=== PATIENT | female | born 1995 ===

== ENCOUNTER 2019-07-24 19:22 | Outpatient (CLI) | payer OTHER ==
[2019-07-24 20:52] LABS: Basophils % (Auto) 0.2 % (0.0-1.8); Eosinophils # (Auto) 0.1 K/mm3 (0.0-0.4); Eosinophils % (Auto) 1.7 % (0.0-4.3); Hematocrit 34.2 % (30.3-42.9); Hemoglobin 11.9 gm/dl (10.1-14.3); Lymphocytes # (Auto) 0.7 K/mm3 (1.2-5.4); Lymphocytes % (Auto) 14.1 % (13.4-35.0); Mean Corpuscular HGB Conc 35 % (30-34); Mean Corpuscular Volume 93 fl (79-97); Monocytes # (Auto) 0.4 K/mm3 (0.0-0.8); Monocytes % (Auto) 7.7 % (0.0-7.3); Platelet Count 236 K/mm3 (140-440); Red Blood Count 3.69 M/mm3 (3.65-5.03); Red Cell Distribution Width 14.7 % (13.2-15.2)
[2019-07-24 21:07] LABS: Alanine Aminotransferase 26 units/L (7-56); Albumin 3.5 g/dL (3.9-5); BUN/Creatinine Ratio 15; Blood Urea Nitrogen 9 mg/dL (7-17); Calcium 8.9 mg/dL (8.4-10.2); Hemolysis Index 15
[2019-07-24 21:25] LABS: Hepatitis C Virus Antibody Non-Reactive (NonReactive)
[2019-07-24 22:29] LABS: Bacteria,Urine 2+ /HPF (Negative); Bilirubin,Urine NEG (Negative); Blood,Urine LG (Negative); Color,Urine Yellow (Yellow); Mucus,Urine FEW /HPF; Protein,Urine <15 mg/dL mg/dL (Negative); Urobilinogen,Urine < 2.0 mg/dL (<2.0)
[2019-07-24 22:58] VITALS: BP 135/87
--- NOTE | 2019-07-24 23:46 | Ultrasound Report ---
Limited Obstetrical Ultrasound Indication: no care. For weight and position. Contractions Shows a normal-appearing intrauterine with an estimated gestational age of 38 weeks 4 days. I do not see a significant discrepancy between head and body measurements. US dating corresponds edward sonably well with clinical dating. No anomalies are seen are seen in a limited survey. Cardiac activity was noted at 156 bpm. Fetus is in a cephalic position. Placenta is anterior/right lateral and free of the internal cervical os. Es timated weight is 3571 g +/- 529 g. Amniotic fluid volume appears appropriate for age. EMMETT yuki surement is at the upper end of the normal range and 18.1 cm. Cervical length is 4.4 cm. Signer Name: Ludin Vazquez MD Signed: 07/24/2019 11:41 PM Workstation Name: [id number]
== END 2019-07-24 23:10 | disposition home or self-care (01) ==
LOC: TRG 19:22
PROVIDERS: ATTEND Obstetrics & Gynecology
DX: O62.9 Abnormality of forces of labor, unspecified (principal); O48.0 Post-term pregnancy; Z3A.40 40 weeks gestation of pregnancy
CPT/HCPCS: 36415; 59025; 76816; 80053; 81001; 85025; 86592; 86689; 86706; 86762; 86803; 86850; 86900; 86901; 87086

== ENCOUNTER 2019-07-25 03:04 | Inpatient (IN) | payer OTHER ==
[2019-07-25] MEDS ORDERED: BUTORPHANOL 2 MG/1 ML INJ IV ONE (03:40)
[2019-07-25 07:24] LABS: Hematocrit 35.4 % (30.3-42.9); Mean Corpuscular HGB Conc 34 % (30-34); Mean Corpuscular Volume 94 fl (79-97); Platelet Count 226 K/mm3 (140-440); Red Blood Count 3.78 M/mm3 (3.65-5.03); Red Cell Distribution Width 14.5 % (13.2-15.2)
[2019-07-25] MEDS ORDERED: MINERAL OIL 30 ML ORAL LIQD PO PRN (08:00)
[2019-07-25] MEDS ORDERED: OXYTOCIN 20 UNIT/1000ML DRIP 20 UNITS/1,000 ML BAG IV SCH (08:00)
[2019-07-25] MEDS ORDERED: TERBUTALINE 1 MG/1 ML INJ IVP PRN (08:00)
[2019-07-25] MEDS ORDERED: OXYTOCIN DRIP 30 UNITS/500 ML BAG IV SCH (08:00)
[2019-07-25] MEDS ORDERED: TERBUTALINE 1 MG/1 ML INJ SUB-Q PRN (08:00)
[2019-07-25] MEDS ORDERED: AMPICILLIN/NS 2 GM/100 ML 2 GM/100 ML BAG IV ONE (08:00)
[2019-07-25] MEDS ORDERED: ONDANSETRON 4 MG/2 ML INJ IV PRN (08:00)
[2019-07-25] MEDS ORDERED: ePHEDrine SULFATE 50 MG/1 ML INJ IV PRN ×2 (08:00→10:30)
[2019-07-25] MEDS ORDERED: fentaNYL 100 MCG/2 ML INJ IV PRN (08:00)
[2019-07-25] MEDS ORDERED: LIDOCAINE (2%) 20 MG/1 ML VIAL 20 ML MDV INFILTRATI NR (08:00)
[2019-07-25] MEDS ORDERED: NalbUPHINE 10 MG/1 ML INJ IV PRN (08:00)
[2019-07-25] MEDS ORDERED: BUTORPHANOL 2 MG/1 ML INJ IV PRN (08:00)
[2019-07-25] MEDS: LACTATED RINGERS 1,000 ML IV SCH ×3 (08:05→19:54)
[2019-07-25] MEDS ORDERED: NALOXONE 2 MG/2 ML INJ IV PRN (10:30)
--- NOTE | 2019-07-25 10:49 | Anesthesia Consultation ---
Anesthesia Consult and Med Hx Date of service: 07/25/19 - Airway Anesthetic Teeth Evaluation: Good ROM Head & Neck: Adequate Mental/Hyoid Distance: Adequate Mallampati Class: Class II Intubation Access Assessment: Probably Good - Pulmonary Exam CTA: Yes - Cardiac Exam Cardiac Exam: RRR - Pre-Operative Health Status ASA Pre-Surgery Classification: ASA2 Proposed Anesthetic Plan: Epidural - Pulmonary Hx Smoking: No Hx Asthma: No Hx Respiratory Symptoms: No SOB: No COPD: No Home Oxygen Therapy: No Hx Pneumonia: No Hx Sleep Apnea: No - Cardiovascular System Hx Hypertension: No Hx Coronary Artery Disease: No Hx Heart Attack/AMI: No Hx Angina: No Hx Percutaneous Transluminal Coronary Angioplasty (PTCA): No Hx Cardia Arrhythmia: No Hx Pacemaker: No Hx Internal Defibrillator: No Hx Valvular Heart Disease: No Hx Heart Murmur: No Hx Peripheral Vascular Disease: No - Central Nervous System Hx Neuromuscular Disorder: No Hx Seizures: No CVA: No Hx Back Pain: No Hx Psychiatric Problems: No - Gastrointestinal Hx Ulcer: No Hx Gastroesophageal Reflux Disease: No - Endocrine Hx Renal Disease: No Hx End Stage Renal Disease: No Hx Cirrhosis: No Hx Liver Disease: No Hx Insulin Dependent Diabetes: No Hx Non-Insulin Dependent Diabetes: No Hx Thyroid Disease: No Hx Hypothyroidism: No Hx Hyperthyroidism: No - Hematic Hx Anemia: No Hx Sickle Cell Disease: No - Other Systems Hx Alcohol Use: No Hx Substance Use: No Hx Cancer: No Hx Obesity: No
[2019-07-25] MEDS: fentaNYL-BUPIV 2 MCG/ML-0.125% 200 MCG/100 ML BAG EPIDURAL SCH ×2 (11:21→19:55)
--- NOTE | 2019-07-25 11:39 | History and Physical Report ---
History of Present Illness Date of examination: 07/25/19 Date of admission: 07/25/19 03:05 Chief complaint: intense labor pains History of present illness: 24yo Fe , VIOLA 07/19/2019 (US) 40 weeks 6 days, presents in spontaneous labor. Pt reports having no care but having an US at 22 weeks and 35 weeks. She denies any PMH or surgical history. Past History Past Medical History: no pertinent history Past Surgical History: no surgical history MANAGER PERSONAL History: other (Denies any MANAGER PERSONAL history) Family/Genetic History: none Social history: single, lives with family, full code. denies: smoking, alcohol abuse, prescription drug abuse, IV drug use - Obstetrical History Expected Date of Delivery: 07/19/19 Actual Gestation: 40 Week(s) 6 Day(s) : 1 Para: 0 Hx # Term Pregnancies: 0 Number of Pregnancies: 0 Spontaneous Abortions: 0 Induced : 0 Number of Living Children: 0 Medications and Allergies Allergies Allergy/AdvReac Type Severity Reaction Status Date / Time No Known Allergies Allergy Verified 07/25/19 03:43 Active Meds: Active Medications Butorphanol Tartrate (Stadol) 2 mg IV Q2H PRN PRN Reason: Pain , Severe (7-10) Last Admin: 07/25/19 07:58 Dose: 2 mg Documented by: Ephedrine Sulfate (Ephedrine Sulfate) 10 mg IV Q2M PRN PRN Reason: Hypotension Fentanyl (Sublimaze) 100 mcg IV Q2H PRN PRN Reason: Labor Pain Oxytocin/Sodium Chloride (Pitocin/Ns 20 Unit/1000ml Drip) 20 units in 1,000 mls @ 125 mls/hr IV DIRECT MELONY Oxytocin/Sodium Chloride (Pitocin/Ns 30 Unit/500ml) 30 units in 500 mls @ 1 mls/hr IV TITR MELONY; Protocol Oxytocin/Sodium Chloride (Pitocin/Ns 30 Unit/500ml) 30 units in 500 mls @ 2 mls/hr IV TITR MELONY; Protocol Lactated Ringer's (Lactated Ringers) 1,000 mls @ 125 mls/hr IV DIRECT MELONY Last Admin: 07/25/19 11:04 Dose: 125 mls/hr Documented by: Ampicillin Sodium (Ampicillin/Ns 1 Gm/50 Ml) 1 gm in 50 mls @ 100 mls/hr IV Q4H MELONY; Protocol Fentanyl/Bupivacaine/Sodium Chlor (Fentanyl-Bupiv 2 Mcg/Ml-0.125%) 200 mcg in 100 mls @ 12 mls/hr EPIDURAL TITR MELONY; Protocol Last Admin: 07/25/19 11:21 Dose: 12 mls/hr Documented by: Lidocaine (Xylocaine 2%) 20 ml INFILTRATI ONCE NR Stop: 07/26/19 07:59 Mineral Oil (Mineral Oil) 30 ml PO QHS PRN PRN Reason: Constipation Nalbuphine HCl (Nalbuphine) 10 mg IV Q2H PRN PRN Reason: Pain, Moderate (4-6) Naloxone HCl (Naloxone) 0.2 mg IV Q5M PRN PRN Reason: Respiratory sedation Ondansetron HCl (Zofran) 4 mg IV Q8H PRN PRN Reason: Nausea And Vomiting Terbutaline Sulfate (Brethine) 0.25 mg SUB-Q ONCE PRN PRN Reason: Hyperstimulation/Hypertonicity Terbutaline Sulfate (Brethine) 0.25 mg IVP ONCE PRN PRN Reason: Hyperstimulation/Hypertonicity Review of Systems Eyes: normal appearance Cardiovascular: no chest pain, no shortness of breath Respiratory: no shortness of breath Breasts: normal Gastrointestinal: no nausea, no vomiting, no diarrhea, no constipation Genitourinary: normal appearance, contractions, no vaginal bleeding, no leakage of fluid, no genital sores Integumentary: no rash, no sores, no lesions - Vital Signs Vital signs: Vital Signs Pulse Pulse Ox 79 97 07/25/19 03:13 07/25/19 03:13 Temp Pulse Resp BP Pulse Ox 97.7 F 84 18 121/75 99 07/25/19 07:30 07/25/19 11:34 07/25/19 07:30 07/25/19 11:34 07/25/19 11:34 - Physical Exam Breasts: Positive: normal Cardiovascular: Regular rate, Normal S1, Normal S2, No murmurs Lungs: Positive: Clear to auscultation, Normal air movement Abdomen: Positive: normal appearance, soft, normal bowel sounds. Negative: distention Genitourinary (Female): Positive: normal external genitalia, normal perenium Vulva: both: normal Vagina: Positive: normal moisture Uterus: Positive: enlarged (Gravid) Adnexa: both: normal Anus/Rectum: Positive: normal perianal skin Extremities: Positive: normal Deep Tendon Reflex Grade: Normal +2 - Obstetrical FHR: category 1 Uterine Contraction Monitor Mode: External Cervical Dilatation: 6 (AROM 11:16, scant pink inged fluid) Cervical Effacement Percentage: 70 station: -2 Uterine Contraction Pattern: Regular Uterine Tone Measurement Phase: Resting Uterine Contraction Intensity: Moderate Results Result Diagrams: 07/25/19 03:45 All other labs normal. Assessment and Plan A: IUP at 40w6d GBS unknown No care Anemia Active labor Category 1 tracing P: Admit to L&D; Routine labor orders May have IV pain med/epidural PRN GBS prophylaxis Anticipate
[2019-07-25] MEDS: AMPICILLIN/NS 1 GM/50 ML 1 GM/50 ML BAG IV SCH ×4 (12:24→23:49)
[2019-07-25] MEDS: OXYTOCIN DRIP 30 UNITS/500 ML BAG IV SCH ×2 (12:24→12:32)
[2019-07-25] MEDS ORDERED: BUPIVACAINE/PF (0.25%) 2.5 MG/ML 10 ML VIAL INFILTRATI ONE ×2 (19:06→23:57)
--- NOTE | 2019-07-25 22:03 | Progress Note ---
Assessment and Plan A: IUP at 40w6d GBS unknown; receiving prophylaxis Active labor; minimal cervical change Pitocin 14mu Comfortable with epidural Category 1 tracing Low grade maternal temp 99.9 P: Routine labor orders Continue GBS prophylaxis Tylenol 1000mg PO Increase pitocin until MVUs 275-300 IUPC insertion with plan to increase pitocin until adequate contractions. Plan to recheck cervix in 1 hr. Explained to pt and family that if no cervical change with adequate contractions will need Primary c/s due to failure to progress. Pt verbalizes understanding. Subjective - Subjective Date of service: 07/25/19 Principal diagnosis: Spontaneops labor Interval history: 24yo Fe , VIOLA 07/19/2019 (US) 40 weeks 6 days, presents in spontaneous labor. Pt has received NO care. Patient reports: loss of fluid, movement normal, contractions Objective - Vital Signs Vital Signs: Vital Signs - 12hr 07/25/19 07/25/19 07/25/19 09:49 09:54 09:59 Temperature Pulse Rate 92 H 84 76 Respiratory Rate Blood Pressure Blood Pressure [Left] O2 Sat by Pulse 98 99 97 Oximetry 07/25/19 07/25/19 07/25/19 10:04 10:09 10:14 Temperature Pulse Rate 88 79 84 Respiratory Rate Blood Pressure Blood Pressure [Left] O2 Sat by Pulse 98 98 99 Oximetry 07/25/19 07/25/19 07/25/19 10:15 10:19 10:24 Temperature Pulse Rate 77 100 H 92 H Respiratory Rate Blood Pressure 126/84 Blood Pressure [Left] O2 Sat by Pulse 99 100 Oximetry 07/25/19 07/25/19 07/25/19 10:29 10:34 10:37 Temperature Pulse Rate 100 H 85 78 Respiratory Rate Blood Pressure 123/77 Blood Pressure [Left] O2 Sat by Pulse 100 98 Oximetry 07/25/19 07/25/19 07/25/19 10:39 10:43 10:44 Temperature Pulse Rate 73 81 96 H Respiratory Rate Blood Pressure 125/74 Blood Pressure [Left] O2 Sat by Pulse 99 99 Oximetry 07/25/19 07/25/19 07/25/19 10:47 10:49 10:51 Temperature Pulse Rate 90 85 100 H Respiratory Rate Blood Pressure 116/73 115/72 Blood Pressure [Left] O2 Sat by Pulse 99 Oximetry 1007/25/19 07/25/19 10:54 10:57 10:59 Temperature Pulse Rate 81 83 85 Respiratory Rate Blood Pressure 125/72 Blood Pressure [Left] O2 Sat by Pulse 99 97 Oximetry 07/25/19 07/25/19 07/25/19 11:02 11:04 11:07 Temperature Pulse Rate 68 86 96 H Respiratory Rate Blood Pressure 119/66 120/67 Blood Pressure [Left] O2 Sat by Pulse 99 Oximetry 07/25/19 07/25/19 07/25/19 11:09 11:12 11:14 Temperature Pulse Rate 90 81 107 H Respiratory Rate Blood Pressure 117/69 Blood Pressure [Left] O2 Sat by Pulse 98 99 Oximetry 07/25/19 07/25/19 07/25/19 11:18 11:19 11:24 Temperature Pulse Rate 74 72 76 Respiratory Rate Blood Pressure 131/75 Blood Pressure [Left] O2 Sat by Pulse 99 99 Oximetry 07/25/19 07/25/19 07/25/19 11:29 11:34 11:39 Temperature Pulse Rate 86 84 83 Respiratory Rate Blood Pressure 121/75 Blood Pressure [Left] O2 Sat by Pulse 99 99 98 Oximetry 07/25/19 07/25/19 07/25/19 11:44 11:49 11:50 Temperature Pulse Rate 82 74 78 Respiratory Rate Blood Pressure 133/64 Blood Pressure [Left] O2 Sat by Pulse 98 98 Oximetry 07/25/19 07/25/19 07/25/19 11:54 11:59 12:04 Temperature Pulse Rate 101 H 89 75 Respiratory Rate Blood Pressure 115/64 Blood Pressure [Left] O2 Sat by Pulse 99 99 99 Oximetry 07/25/19 07/25/19 07/25/19 12:09 12:14 12:19 Temperature Pulse Rate 94 H 90 68 Respiratory Rate Blood Pressure 116/67 Blood Pressure [Left] O2 Sat by Pulse 99 99 98 Oximetry 07/25/19 07/25/19 07/25/19 12:24 12:29 12:32 Temperature 97.5 F L Pulse Rate 92 H 77 Respiratory 18 Rate Blood Pressure Blood Pressure [Left] O2 Sat by Pulse 98 98 Oximetry 07/25/19 07/25/19 07/25/19 12:34 12:35 12:39 Temperature Pulse Rate 66 79 70 Respiratory Rate Blood Pressure 108/63 Blood Pressure [Left] O2 Sat by Pulse 98 98 Oximetry 07/25/19 07/25/19 07/25/19 12:44 12:49 12:54 Temperature Pulse Rate 74 66 76 Respiratory Rate Blood Pressure Blood Pressure [Left] O2 Sat by Pulse 98 99 98 Oximetry 07/25/19 07/25/19 07/25/19 12:59 13:04 13:06 Temperature Pulse Rate 68 63 80 Respiratory Rate Blood Pressure 102/61 Blood Pressure [Left] O2 Sat by Pulse 99 99 Oximetry 07/25/19 07/25/19 07/25/19 13:09 13:14 13:19 Temperature Pulse Rate 88 68 68 Respiratory Rate Blood Pressure Blood Pressure [Left] O2 Sat by Pulse 99 98 98 Oximetry 07/25/19 07/25/19 07/25/19 13:24 13:29 13:34 Temperature Pulse Rate 58 L 81 68 Respiratory Rate Blood Pressure Blood Pressure [Left] O2 Sat by Pulse 99 98 99 Oximetry 07/25/19 07/25/19 07/25/19 13:36 13:39 13:44 Temperature Pulse Rate 87 72 60 Respiratory Rate Blood Pressure 103/56 Blood Pressure [Left] O2 Sat by Pulse 98 98 Oximetry 07/25/19 07/25/19 07/25/19 13:49 13:54 13:59 Temperature Pulse Rate 63 72 79 Respiratory Rate Blood Pressure Blood Pressure [Left] O2 Sat by Pulse 98 99 99 Oximetry 07/25/19 07/25/19 07/25/19 14:04 14:07 14:09 Temperature Pulse Rate 76 67 64 Respiratory Rate Blood Pressure 117/66 Blood Pressure [Left] O2 Sat by Pulse 99 99 Oximetry 07/25/19 07/25/19 07/25/19 14:14 14:19 14:24 Temperature Pulse Rate 66 74 70 Respiratory Rate Blood Pressure Blood Pressure [Left] O2 Sat by Pulse 99 99 99 Oximetry 07/25/19 07/25/19 07/25/19 14:29 14:34 14:36 Temperature Pulse Rate 79 86 73 Respiratory Rate Blood Pressure 130/72 Blood Pressure [Left] O2 Sat by Pulse 98 99 Oximetry 07/25/19 07/25/19 07/25/19 14:39 14:44 14:49 Temperature Pulse Rate 85 73 68 Respiratory Rate Blood Pressure Blood Pressure [Left] O2 Sat by Pulse 99 99 100 Oximetry 07/25/19 07/25/19 07/25/19 14:54 14:59 15:04 Temperature Pulse Rate 75 79 81 Respiratory Rate Blood Pressure Blood Pressure [Left] O2 Sat by Pulse 98 99 98 Oximetry 07/25/19 07/25/19 07/25/19 15:07 15:09 15:14 Temperature Pulse Rate 91 H 76 82 Respiratory Rate Blood Pressure 124/72 Blood Pressure [Left] O2 Sat by Pulse 99 97 Oximetry 07/25/19 07/25/19 07/25/19 15:19 15:24 15:29 Temperature Pulse Rate 87 82 97 H Respiratory Rate Blood Pressure Blood Pressure [Left] O2 Sat by Pulse 100 99 99 Oximetry 07/25/19 07/25/19 07/25/19 15:34 15:36 15:39 Temperature Pulse Rate 76 92 H 75 Respiratory Rate Blood Pressure 118/72 Blood Pressure [Left] O2 Sat by Pulse 98 98 Oximetry 07/25/19 07/25/19 07/25/19 15:44 15:49 15:54 Temperature Pulse Rate 67 75 76 Respiratory Rate Blood Pressure Blood Pressure [Left] O2 Sat by Pulse 98 98 98 Oximetry 07/25/19 07/25/19 07/25/19 15:59 16:04 16:06 Temperature Pulse Rate 68 85 93 H Respiratory Rate Blood Pressure 123/70 Blood Pressure [Left] O2 Sat by Pulse 98 98 Oximetry 07/25/19 07/25/19 07/25/19 16:09 16:14 16:19 Temperature Pulse Rate 91 H 102 H 78 Respiratory Rate Blood Pressure Blood Pressure [Left] O2 Sat by Pulse 97 98 98 Oximetry 07/25/19 07/25/19 07/25/19 16:24 16:29 16:34 Temperature Pulse Rate 79 89 82 Respiratory Rate Blood Pressure Blood Pressure [Left] O2 Sat by Pulse 98 99 98 Oximetry 07/25/19 07/25/19 07/25/19 16:36 16:39 16:42 Temperature 97.5 F L Pulse Rate 93 H 85 Respiratory 18 Rate Blood Pressure 116/68 Blood Pressure [Left] O2 Sat by Pulse 98 Oximetry 07/25/19 07/25/19 07/25/19 16:44 16:49 16:54 Temperature Pulse Rate 100 H 107 H 105 H Respiratory Rate Blood Pressure Blood Pressure [Left] O2 Sat by Pulse 98 99 98 Oximetry 07/25/19 07/25/19 07/25/19 16:59 17:04 17:07 Temperature Pulse Rate 107 H 89 90 Respiratory Rate Blood Pressure 131/75 Blood Pressure [Left] O2 Sat by Pulse 99 98 Oximetry 07/25/19 07/25/19 07/25/19 17:09 17:14 17:19 Temperature Pulse Rate 83 81 80 Respiratory Rate Blood Pressure Blood Pressure [Left] O2 Sat by Pulse 98 98 98 Oximetry 07/25/19 07/25/19 07/25/19 17:24 17:29 17:34 Temperature Pulse Rate 111 H 95 H 100 H Respiratory Rate Blood Pressure Blood Pressure [Left] O2 Sat by Pulse 98 98 98 Oximetry 07/25/19 07/25/19 07/25/19 17:36 17:39 17:44 Temperature Pulse Rate 98 H 88 85 Respiratory Rate Blood Pressure 127/78 Blood Pressure [Left] O2 Sat by Pulse 98 98 Oximetry 07/25/19 07/25/19 07/25/19 17:48 17:53 17:58 Temperature Pulse Rate 86 89 99 H Respiratory Rate Blood Pressure Blood Pressure [Left] O2 Sat by Pulse 97 99 99 Oximetry 07/25/19 07/25/19 07/25/19 18:03 18:08 18:13 Temperature Pulse Rate 102 H 114 H 87 Respiratory Rate Blood Pressure Blood Pressure [Left] O2 Sat by Pulse 99 98 99 Oximetry 07/25/19 07/25/19 07/25/19 18:18 18:23 18:28 Temperature Pulse Rate 87 87 87 Respiratory Rate Blood Pressure Blood Pressure [Left] O2 Sat by Pulse 99 98 99 Oximetry 07/25/19 07/25/19 07/25/19 18:33 18:38 18:43 Temperature Pulse Rate 97 H 83 87 Respiratory Rate Blood Pressure Blood Pressure [Left] O2 Sat by Pulse 99 99 99 Oximetry 07/25/19 07/25/19 07/25/19 18:48 18:53 18:58 Temperature Pulse Rate 84 87 82 Respiratory Rate Blood Pressure Blood Pressure [Left] O2 Sat by Pulse 98 98 99 Oximetry 07/25/19 07/25/19 07/25/19 19:03 19:04 19:06 Temperature Pulse Rate 94 H 104 H 92 H Respiratory Rate Blood Pressure 130/89 136/79 Blood Pressure [Left] O2 Sat by Pulse 97 Oximetry 07/25/19 07/25/19 07/25/19 19:08 19:10 19:12 Temperature Pulse Rate 78 83 77 Respiratory Rate Blood Pressure 128/80 128/78 130/80 Blood Pressure [Left] O2 Sat by Pulse 99 Oximetry 07/25/19 07/25/19 07/25/19 19:13 19:14 19:16 Temperature Pulse Rate 77 77 78 Respiratory Rate Blood Pressure 125/73 130/76 Blood Pressure [Left] O2 Sat by Pulse 97 Oximetry 07/25/19 07/25/19 07/25/19 19:18 19:20 19:22 Temperature 98.3 F Pulse Rate 100 H 75 72 Respiratory 18 Rate Blood Pressure 117/71 126/76 Blood Pressure 118/67 [Left] O2 Sat by Pulse 97 97 Oximetry 07/25/19 07/25/19 07/25/19 19:23 19:24 19:26 Temperature Pulse Rate 87 88 77 Respiratory Rate Blood Pressure 113/54 113/62 122/71 Blood Pressure [Left] O2 Sat by Pulse 97 Oximetry 07/25/19 07/25/19 07/25/19 19:28 19:30 19:32 Temperature Pulse Rate 74 83 68 Respiratory Rate Blood Pressure 121/67 110/60 116/66 Blood Pressure [Left] O2 Sat by Pulse 96 Oximetry 07/25/19 07/25/19 07/25/19 19:33 19:34 19:36 Temperature Pulse Rate 74 75 76 Respiratory Rate Blood Pressure 121/71 108/58 Blood Pressure [Left] O2 Sat by Pulse 96 Oximetry 07/25/19 07/25/19 07/25/19 19:38 19:40 19:42 Temperature Pulse Rate 72 71 71 Respiratory Rate Blood Pressure 119/65 118/67 113/62 Blood Pressure [Left] O2 Sat by Pulse 96 Oximetry 07/25/19 07/25/19 07/25/19 19:43 19:47 19:48 Temperature Pulse Rate 72 69 78 Respiratory Rate Blood Pressure 113/62 121/60 Blood Pressure [Left] O2 Sat by Pulse 96 95 Oximetry 07/25/19 07/25/19 07/25/19 19:50 19:52 19:53 Temperature Pulse Rate 69 74 72 Respiratory Rate Blood Pressure 121/71 126/74 Blood Pressure [Left] O2 Sat by Pulse 95 Oximetry 07/25/19 07/25/19 07/25/19 19:58 20:03 20:08 Temperature Pulse Rate 70 75 74 Respiratory Rate Blood Pressure 117/77 Blood Pressure [Left] O2 Sat by Pulse 96 95 95 Oximetry 07/25/19 07/25/19 07/25/19 20:13 20:18 20:23 Temperature Pulse Rate 74 75 85 Respiratory Rate Blood Pressure 112/75 Blood Pressure [Left] O2 Sat by Pulse 96 96 98 Oximetry 07/25/19 07/25/19 07/25/19 20:28 20:33 20:38 Temperature Pulse Rate 75 71 75 Respiratory Rate Blood Pressure 113/73 Blood Pressure [Left] O2 Sat by Pulse 96 96 97 Oximetry 07/25/19 07/25/19 07/25/19 20:43 20:48 20:52 Temperature Pulse Rate 75 75 74 Respiratory Rate Blood Pressure 117/74 Blood Pressure [Left] O2 Sat by Pulse 96 97 Oximetry 07/25/19 07/25/19 07/25/19 20:53 20:58 21:03 Temperature Pulse Rate 73 75 79 Respiratory Rate Blood Pressure Blood Pressure [Left] O2 Sat by Pulse 97 97 97 Oximetry 07/25/19 07/25/19 07/25/19 21:08 21:09 21:13 Temperature Pulse Rate 78 75 81 Respiratory Rate Blood Pressure 128/77 Blood Pressure [Left] O2 Sat by Pulse 97 97 Oximetry 07/25/19 07/25/19 07/25/19 21:18 21:23 21:26 Temperature Pulse Rate 95 H 111 H 108 H Respiratory Rate Blood Pressure 127/76 Blood Pressure [Left] O2 Sat by Pulse 96 98 Oximetry 07/25/19 07/25/19 07/25/19 21:28 21:33 21:37 Temperature Pulse Rate 106 H 109 H 85 Respiratory Rate Blood Pressure 127/75 Blood Pressure [Left] O2 Sat by Pulse 99 98 Oximetry 07/25/19 07/25/19 21:38 21:43 Temperature Pulse Rate 114 H 79 Respiratory Rate Blood Pressure Blood Pressure [Left] O2 Sat by Pulse 97 99 Oximetry - Exam Breasts: normal Cardiovascular: Regular rate, Normal S1, Normal S2, No murmurs Lungs: Clear to auscultation, Normal air movement Abdomen: Present: normal appearance, soft, normal bowel sounds, other (gravid) Vulva: both: normal (Bloody show noted) Uterus: Present: other (gravid) FHR: category 1 Uterine Contraction Monitor Mode: External Cervical Dilatation: 6 (clear fluid noted with exam. IUPC inserted in gentle fashion with no resistance. ) Cervical Effacement Percentage: 80 station: -2 Uterine Contraction Pattern: Regular Uterine Tone Measurement Phase: Resting Uterine Contraction Intensity: Moderate Extremities: normal - Labs Labs: Laboratory Results - last 24 hr 07/25/19 07/25/19 03:45 03:45 WBC 7.9 RBC 3.78 Hgb 12.0 Hct 35.4 MCV 94 MCH 32 MCHC 34 RDW 14.5 Plt Count 226 Blood Type O POSITIVE Antibody Screen Negative
[2019-07-25] MEDS ORDERED: ACETAMINOPHEN 500 MG TAB PO ONE (22:47)
[2019-07-26] MEDS: LACTATED RINGERS 1,000 ML IV SCH (00:31)
[2019-07-26] MEDS ORDERED: BICITRA ORAL LIQD 30ML PO ONE (00:51)
[2019-07-26] MEDS ORDERED: METOCLOPRAMIDE 10 MG/2 ML INJ IV ONE (00:51)
[2019-07-26] MEDS ORDERED: FAMOTIDINE 20 MG/2 ML INJ IV ONE (00:51)
[2019-07-26] MEDS ORDERED: LACTATED RINGERS 1,000 ML IV SCH (01:00)
[2019-07-26] MEDS ORDERED: ceFAZolin/Water 2 GM/20 ML 2 GM/20 ML SYRINGE IV NR (01:00)
[2019-07-26] MEDS ORDERED: OXYTOCIN 20 UNIT/1000ML DRIP 20 UNITS/1,000 ML BAG IV SCH ×2 (01:00→04:00)
--- NOTE | 2019-07-26 01:00 | Progress Note ---
Assessment and Plan A: IUP at 41w0d GBS unknown; receiving prophylaxis (6 doses given) Pitocin 16mu; turned off Comfortable with epidural Category 2 tracing Failure to progress; Arrest of decent P: Dr. Trujillo notified of pt need for Primary c/section d/t failure to progress and arrest of decent. No care. Requested to come for surgery. Pt and family notified of need for c/s. Questions and concerns addressed. Pre-op orders placed Subjective - Subjective Date of service: 07/26/19 Principal diagnosis: IUP@term, no care, spontaneous labor, failure to progress Interval history: 24yo Fe , [place] 07/19/2019 ([place]) 40 weeks 6 days, presents in spontaneous labor. Pt has received NO care. She progressed to 7cm then failed to dilate. Patient reports: loss of fluid, movement normal, contractions (Comfortable with epidural) Objective - Vital Signs Vital Signs: Vital Signs - 12hr 07/25/19 07/25/19 07/25/19 12:59 13:04 13:06 Temperature Pulse Rate 68 63 80 Respiratory Rate Blood Pressure 102/61 Blood Pressure [Left] O2 Sat by Pulse 99 99 Oximetry 07/25/19 07/25/19 07/25/19 13:09 13:14 13:19 Temperature Pulse Rate 88 68 68 Respiratory Rate Blood Pressure Blood Pressure [Left] O2 Sat by Pulse 99 98 98 Oximetry 07/25/19 07/25/19 07/25/19 13:24 13:29 13:34 Temperature Pulse Rate 58 L 81 68 Respiratory Rate Blood Pressure Blood Pressure [Left] O2 Sat by Pulse 99 98 99 Oximetry 07/25/19 07/25/19 07/25/19 13:36 13:39 13:44 Temperature Pulse Rate 87 72 60 Respiratory Rate Blood Pressure 103/56 Blood Pressure [Left] O2 Sat by Pulse 98 98 Oximetry 07/25/19 07/25/19 07/25/19 13:49 13:54 13:59 Temperature Pulse Rate 63 72 79 Respiratory Rate Blood Pressure Blood Pressure [Left] O2 Sat by Pulse 98 99 99 Oximetry 07/25/19 07/25/19 07/25/19 14:04 14:07 14:09 Temperature Pulse Rate 76 67 64 Respiratory Rate Blood Pressure 117/66 Blood Pressure [Left] O2 Sat by Pulse 99 99 Oximetry 07/25/19 07/25/19 07/25/19 14:14 14:19 14:24 Temperature Pulse Rate 66 74 70 Respiratory Rate Blood Pressure Blood Pressure [Left] O2 Sat by Pulse 99 99 99 Oximetry 07/25/19 07/25/19 07/25/19 14:29 14:34 14:36 Temperature Pulse Rate 79 86 73 Respiratory Rate Blood Pressure 130/72 Blood Pressure [Left] O2 Sat by Pulse 98 99 Oximetry 07/25/19 07/25/19 07/25/19 14:39 14:44 14:49 Temperature Pulse Rate 85 73 68 Respiratory Rate Blood Pressure Blood Pressure [Left] O2 Sat by Pulse 99 99 100 Oximetry 07/25/19 07/25/19 07/25/19 14:54 14:59 15:04 Temperature Pulse Rate 75 79 81 Respiratory Rate Blood Pressure Blood Pressure [Left] O2 Sat by Pulse 98 99 98 Oximetry 07/25/19 07/25/19 07/25/19 15:07 15:09 15:14 Temperature Pulse Rate 91 H 76 82 Respiratory Rate Blood Pressure 124/72 Blood Pressure [Left] O2 Sat by Pulse 99 97 Oximetry 07/25/19 07/25/19 07/25/19 15:19 15:24 15:29 Temperature Pulse Rate 87 82 97 H Respiratory Rate Blood Pressure Blood Pressure [Left] O2 Sat by Pulse 100 99 99 Oximetry 07/25/19 07/25/19 07/25/19 15:34 15:36 15:39 Temperature Pulse Rate 76 92 H 75 Respiratory Rate Blood Pressure 118/72 Blood Pressure [Left] O2 Sat by Pulse 98 98 Oximetry 07/25/19 07/25/19 07/25/19 15:44 15:49 15:54 Temperature Pulse Rate 67 75 76 Respiratory Rate Blood Pressure Blood Pressure [Left] O2 Sat by Pulse 98 98 98 Oximetry 07/25/19 07/25/19 07/25/19 15:59 16:04 16:06 Temperature Pulse Rate 68 85 93 H Respiratory Rate Blood Pressure 123/70 Blood Pressure [Left] O2 Sat by Pulse 98 98 Oximetry 07/25/19 07/25/19 07/25/19 16:09 16:14 16:19 Temperature Pulse Rate 91 H 102 H 78 Respiratory Rate Blood Pressure Blood Pressure [Left] O2 Sat by Pulse 97 98 98 Oximetry 07/25/19 07/25/19 07/25/19 16:24 16:29 16:34 Temperature Pulse Rate 79 89 82 Respiratory Rate Blood Pressure Blood Pressure [Left] O2 Sat by Pulse 98 99 98 Oximetry 07/25/19 07/25/19 07/25/19 16:36 16:39 16:42 Temperature 97.5 F L Pulse Rate 93 H 85 Respiratory 18 Rate Blood Pressure 116/68 Blood Pressure [Left] O2 Sat by Pulse 98 Oximetry 07/25/19 07/25/19 07/25/19 16:44 16:49 16:54 Temperature Pulse Rate 100 H 107 H 105 H Respiratory Rate Blood Pressure Blood Pressure [Left] O2 Sat by Pulse 98 99 98 Oximetry 07/25/19 07/25/19 07/25/19 16:59 17:04 17:07 Temperature Pulse Rate 107 H 89 90 Respiratory Rate Blood Pressure 131/75 Blood Pressure [Left] O2 Sat by Pulse 99 98 Oximetry 07/25/19 07/25/19 07/25/19 17:09 17:14 17:19 Temperature Pulse Rate 83 81 80 Respiratory Rate Blood Pressure Blood Pressure [Left] O2 Sat by Pulse 98 98 98 Oximetry 07/25/19 07/25/19 07/25/19 17:24 17:29 17:34 Temperature Pulse Rate 111 H 95 H 100 H Respiratory Rate Blood Pressure Blood Pressure [Left] O2 Sat by Pulse 98 98 98 Oximetry 07/25/19 07/25/19 07/25/19 17:36 17:39 17:44 Temperature Pulse Rate 98 H 88 85 Respiratory Rate Blood Pressure 127/78 Blood Pressure [Left] O2 Sat by Pulse 98 98 Oximetry 07/25/19 07/25/19 07/25/19 17:48 17:53 17:58 Temperature Pulse Rate 86 89 99 H Respiratory Rate Blood Pressure Blood Pressure [Left] O2 Sat by Pulse 97 99 99 Oximetry 07/25/19 07/25/19 07/25/19 18:03 18:08 18:13 Temperature Pulse Rate 102 H 114 H 87 Respiratory Rate Blood Pressure Blood Pressure [Left] O2 Sat by Pulse 99 98 99 Oximetry 07/25/19 07/25/19 07/25/19 18:18 18:23 18:28 Temperature Pulse Rate 87 87 87 Respiratory Rate Blood Pressure Blood Pressure [Left] O2 Sat by Pulse 99 98 99 Oximetry 07/25/19 07/25/19 07/25/19 18:33 18:38 18:43 Temperature Pulse Rate 97 H 83 87 Respiratory Rate Blood Pressure Blood Pressure [Left] O2 Sat by Pulse 99 99 99 Oximetry 07/25/19 07/25/19 07/25/19 18:48 18:53 18:58 Temperature Pulse Rate 84 87 82 Respiratory Rate Blood Pressure Blood Pressure [Left] O2 Sat by Pulse 98 98 99 Oximetry 07/25/19 07/25/19 07/25/19 19:03 19:04 19:06 Temperature Pulse Rate 94 H 104 H 92 H Respiratory Rate Blood Pressure 130/89 136/79 Blood Pressure [Left] O2 Sat by Pulse 97 Oximetry 07/25/19 07/25/19 07/25/19 19:08 19:10 19:12 Temperature 100 F H Pulse Rate 78 83 77 Respiratory Rate Blood Pressure 128/80 128/78 130/80 Blood Pressure [Left] O2 Sat by Pulse 99 Oximetry 07/25/19 07/25/19 07/25/19 19:13 19:14 19:16 Temperature Pulse Rate 77 77 78 Respiratory Rate Blood Pressure 125/73 130/76 Blood Pressure [Left] O2 Sat by Pulse 97 Oximetry 07/25/19 07/25/19 07/25/19 19:18 19:20 19:22 Temperature 98.3 F Pulse Rate 100 H 75 72 Respiratory 18 Rate Blood Pressure 117/71 126/76 Blood Pressure 118/67 [Left] O2 Sat by Pulse 97 97 Oximetry 07/25/19 07/25/19 07/25/19 19:23 19:24 19:26 Temperature Pulse Rate 87 88 77 Respiratory Rate Blood Pressure 113/54 113/62 122/71 Blood Pressure [Left] O2 Sat by Pulse 97 Oximetry 07/25/19 07/25/19 07/25/19 19:28 19:30 19:32 Temperature Pulse Rate 74 83 68 Respiratory Rate Blood Pressure 121/67 110/60 116/66 Blood Pressure [Left] O2 Sat by Pulse 96 Oximetry 07/25/19 07/25/19 07/25/19 19:33 19:34 19:36 Temperature Pulse Rate 74 75 76 Respiratory Rate Blood Pressure 121/71 108/58 Blood Pressure [Left] O2 Sat by Pulse 96 Oximetry 07/25/19 07/25/19 07/25/19 19:38 19:40 19:42 Temperature Pulse Rate 72 71 71 Respiratory Rate Blood Pressure 119/65 118/67 113/62 Blood Pressure [Left] O2 Sat by Pulse 96 Oximetry 07/25/19 07/25/19 07/25/19 19:43 19:47 19:48 Temperature Pulse Rate 72 69 78 Respiratory Rate Blood Pressure 113/62 121/60 Blood Pressure [Left] O2 Sat by Pulse 96 95 Oximetry 07/25/19 07/25/19 07/25/19 19:50 19:52 19:53 Temperature Pulse Rate 69 74 72 Respiratory Rate Blood Pressure 121/71 126/74 Blood Pressure [Left] O2 Sat by Pulse 95 Oximetry 07/25/19 07/25/19 07/25/19 19:58 20:03 20:08 Temperature Pulse Rate 70 75 74 Respiratory Rate Blood Pressure 117/77 Blood Pressure [Left] O2 Sat by Pulse 96 95 95 Oximetry 07/25/19 07/25/19 07/25/19 20:13 20:18 20:23 Temperature Pulse Rate 74 75 85 Respiratory Rate Blood Pressure 112/75 Blood Pressure [Left] O2 Sat by Pulse 96 96 98 Oximetry 07/25/19 07/25/19 07/25/19 20:28 20:33 20:38 Temperature Pulse Rate 75 71 75 Respiratory Rate Blood Pressure 113/73 Blood Pressure [Left] O2 Sat by Pulse 96 96 97 Oximetry 07/25/19 07/25/19 07/25/19 20:43 20:48 20:52 Temperature Pulse Rate 75 75 74 Respiratory Rate Blood Pressure 117/74 Blood Pressure [Left] O2 Sat by Pulse 96 97 Oximetry 07/25/19 07/25/19 07/25/19 20:53 20:58 21:03 Temperature Pulse Rate 73 75 79 Respiratory Rate Blood Pressure Blood Pressure [Left] O2 Sat by Pulse 97 97 97 Oximetry 07/25/19 07/25/19 07/25/19 21:08 21:09 21:13 Temperature Pulse Rate 78 75 81 Respiratory Rate Blood Pressure 128/77 Blood Pressure [Left] O2 Sat by Pulse 97 97 Oximetry 07/25/19 07/25/19 07/25/19 21:18 21:23 21:26 Temperature Pulse Rate 95 H 111 H 108 H Respiratory Rate Blood Pressure 127/76 Blood Pressure [Left] O2 Sat by Pulse 96 98 Oximetry 07/25/19 07/25/19 07/25/19 21:28 21:30 21:33 Temperature 98.9 F Pulse Rate 106 H 109 H Respiratory Rate Blood Pressure Blood Pressure [Left] O2 Sat by Pulse 99 98 Oximetry 07/25/19 07/25/19 07/25/19 21:37 21:38 21:43 Temperature Pulse Rate 85 114 H 79 Respiratory Rate Blood Pressure 127/75 Blood Pressure [Left] O2 Sat by Pulse 97 99 Oximetry 07/25/19 07/25/19 07/25/19 21:48 21:53 21:54 Temperature Pulse Rate 92 H 82 81 Respiratory Rate Blood Pressure 113/67 Blood Pressure [Left] O2 Sat by Pulse 99 97 Oximetry 07/25/19 07/25/19 07/25/19 21:58 22:03 22:08 Temperature Pulse Rate 85 81 71 Respiratory Rate Blood Pressure 124/61 Blood Pressure [Left] O2 Sat by Pulse 97 98 99 Oximetry 07/25/19 07/25/19 07/25/19 22:13 22:18 22:22 Temperature Pulse Rate 71 73 75 Respiratory Rate Blood Pressure 113/61 Blood Pressure [Left] O2 Sat by Pulse 98 99 Oximetry 07/25/19 07/25/19 07/25/19 22:23 22:28 22:33 Temperature Pulse Rate 82 83 105 H Respiratory Rate Blood Pressure Blood Pressure [Left] O2 Sat by Pulse 98 99 96 Oximetry 07/25/19 07/25/19 07/25/19 22:38 22:39 22:43 Temperature Pulse Rate 100 H 90 89 Respiratory Rate Blood Pressure 129/75 Blood Pressure [Left] O2 Sat by Pulse 99 97 Oximetry 07/25/19 07/25/19 07/25/19 22:48 22:53 22:58 Temperature Pulse Rate 78 78 79 Respiratory Rate Blood Pressure 136/88 Blood Pressure [Left] O2 Sat by Pulse 99 98 99 Oximetry 07/25/19 07/25/19 07/25/19 23:03 23:07 23:08 Temperature Pulse Rate 77 77 75 Respiratory Rate Blood Pressure 139/86 Blood Pressure [Left] O2 Sat by Pulse 98 98 Oximetry 07/25/19 07/25/19 07/25/19 23:13 23:18 23:23 Temperature Pulse Rate 74 75 77 Respiratory Rate Blood Pressure 143/79 Blood Pressure [Left] O2 Sat by Pulse 97 99 96 Oximetry 07/25/19 07/25/19 07/25/19 23:28 23:33 23:38 Temperature Pulse Rate 77 86 83 Respiratory Rate Blood Pressure Blood Pressure [Left] O2 Sat by Pulse 97 99 98 Oximetry 07/25/19 07/25/19 07/25/19 23:39 23:43 23:48 Temperature Pulse Rate 84 101 H 83 Respiratory Rate Blood Pressure 116/73 Blood Pressure [Left] O2 Sat by Pulse 98 99 Oximetry 07/25/19 07/25/19 07/25/19 23:53 23:58 23:59 Temperature Pulse Rate 80 80 84 Respiratory Rate Blood Pressure 138/82 141/73 Blood Pressure [Left] O2 Sat by Pulse 99 98 Oximetry 07/26/19 07/26/19 07/26/19 00:01 00:02 00:03 Temperature Pulse Rate 75 74 69 Respiratory Rate Blood Pressure 145/70 145/72 Blood Pressure [Left] O2 Sat by Pulse 94 97 Oximetry 07/26/19 07/26/19 07/26/19 00:05 00:07 00:08 Temperature Pulse Rate 71 65 70 Respiratory Rate Blood Pressure 144/74 144/73 Blood Pressure [Left] O2 Sat by Pulse 97 Oximetry 07/26/19 07/26/19 07/26/19 00:09 00:10 00:12 Temperature Pulse Rate 71 71 93 H Respiratory Rate Blood Pressure 122/59 124/58 121/56 Blood Pressure [Left] O2 Sat by Pulse Oximetry 07/26/19 07/26/19 07/26/19 00:13 00:15 00:17 Temperature Pulse Rate 78 68 81 Respiratory Rate Blood Pressure 126/60 130/61 Blood Pressure [Left] O2 Sat by Pulse 97 Oximetry 07/26/19 07/26/19 07/26/19 00:18 00:19 00:21 Temperature Pulse Rate 76 77 72 Respiratory Rate Blood Pressure 127/58 124/58 Blood Pressure [Left] O2 Sat by Pulse 97 Oximetry 07/26/19 07/26/19 07/26/19 00:23 00:25 00:27 Temperature Pulse Rate 77 78 76 Respiratory Rate Blood Pressure 109/54 112/57 111/57 Blood Pressure [Left] O2 Sat by Pulse 96 Oximetry 07/26/19 07/26/19 07/26/19 00:28 00:29 00:30 Temperature Pulse Rate 68 65 73 Respiratory Rate Blood Pressure 117/59 111/57 Blood Pressure [Left] O2 Sat by Pulse 96 Oximetry 07/26/19 07/26/19 07/26/19 00:32 00:33 00:38 Temperature Pulse Rate 71 77 71 Respiratory Rate Blood Pressure 109/55 Blood Pressure [Left] O2 Sat by Pulse 95 96 Oximetry 07/26/19 07/26/19 07/26/19 00:43 00:46 00:48 Temperature Pulse Rate 87 77 90 Respiratory Rate Blood Pressure 110/51 Blood Pressure [Left] O2 Sat by Pulse 97 92 96 Oximetry 07/26/19 00:53 Temperature Pulse Rate 75 Respiratory Rate Blood Pressure Blood Pressure [Left] O2 Sat by Pulse 95 Oximetry - Exam Breasts: normal Cardiovascular: Regular rate, Normal S1, Normal S2, No murmurs Lungs: Clear to auscultation, Normal air movement Abdomen: Present: normal appearance, soft, other (gravid). Absent: distention Vulva: both: normal (pink tinged fluid noted SVE) Uterus: Present: other (gravid) FHR: category 2 FHR comments: Minimal variability with repetitive early decels. Uterine Contraction Monitor Mode: External Cervical Dilatation: 7 (Caput noted with SVE, Minimal cervical change since admission. ) Cervical Effacement Percentage: 80 station: -2 Uterine Contraction Frequency (min): 2-4 Uterine Contraction Pattern: Irregular Uterine Tone Measurement Phase: 20 Uterine Tone Measurement (Intensity): 90 (MVUs 240) Extremities: normal Deep Tendon Reflex Grade: Normal +2 - Labs Labs: Laboratory Results - last 24 hr 07/25/19 07/25/19 03:45 03:45 WBC 7.9 RBC 3.78 Hgb 12.0 Hct 35.4 MCV 94 MCH 32 MCHC 34 RDW 14.5 Plt Count 226 Blood Type O POSITIVE Antibody Screen Negative
--- NOTE | 2019-07-26 02:02 | Event Note ---
Date: 07/26/19 Patient's clinical situation reviewed and I agree with midwives assessment. A section was discussed in full details including its possible complications. All of patient's questions were answered and she consented to proceed to a delivery.
--- NOTE | 2019-07-26 02:07 | Anesthesia Day of Surgery ---
Anesthesia Day of Surgery - Day of Surgery Patient Examined: Yes Patient H&P Reviewed: Yes Patient is NPO: Yes Beta Blockers: No Cardiac Clearance: No Pulmonary Clearance: No Hussain's Test: N/A
[2019-07-26] MEDS ORDERED: DEXMEDETOMIDINE 200 MCG/2 ML VIAL IV ONE (02:13)
[2019-07-26] MEDS ORDERED: LIDOCAINE MPF (2%) 20 MG/1 ML VIAL 5 ML ONE ×2 (02:13→02:18)
[2019-07-26] MEDS ORDERED: WATER FOR IRRIG STERILE 1,500 ML BOTTLE IR ONE (02:15)
[2019-07-26] MEDS ORDERED: SODIUM CHLORIDE 0.9% IRR 1,500 ML BOTTLE IR ONE (02:15)
--- NOTE | 2019-07-26 02:30 | Event Note ---
Date: 07/26/19
[2019-07-26] MEDS ORDERED: OXYTOCIN 10 UNIT/1 ML INJ ONE (02:43)
[2019-07-26] MEDS ORDERED: KETOROLAC 30 MG/1 ML INJ ONE (03:06)
[2019-07-26] MEDS ORDERED: ONDANSETRON 4 MG/2 ML INJ ONE (03:06)
[2019-07-26] MEDS ORDERED: WITCH HAZEL/ GLYCERIN PAD TP PRN (03:15)
[2019-07-26] MEDS ORDERED: ACETAMINOPHEN 325 MG TAB PO PRN (03:15)
[2019-07-26] MEDS ORDERED: ONDANSETRON 4 MG/2 ML INJ IV PRN ×2 (03:15→03:32)
[2019-07-26] MEDS ORDERED: LANOLIN/ZINC/DIMETHICONE (LANSINOH) 7 GM TP PRN (03:15)
[2019-07-26] MEDS ORDERED: NALOXONE 0.4 MG/1 ML INJ IV PRN (03:15)
--- NOTE | 2019-07-26 03:23 | Operative Report ---
Operative Report Operative Report: Date of surgery: 07/26/2019 Preoperative diagnoses: Failure to progress Postoperative diagnoses: The same. Operation: Lower segment transverse delivery Surgeon:Danial Trujillo MD Aircraft Magn[employer] Mechanic: Bobbi CHATTERJEE CRNA Anesthesia: Spinal block Estimated blood loss: 800 mL Complications: None Findings: There was a live baby girl in occiput posterior position with bony parts closely apposed to the bony maternal pelvis. scores 8 and 9 and weight of 7 lbs. 14 oz. Both ovaries and fallopian tubes as well as the uterus were unremarkable structures and grossly normal. Procedure in detail: The patient was taken to the operating room and given a spinal block. Patient was placed in the straight supine position and a Wild catheter was inserted. The patient was prepped in the abdomen. The drapes were placed. A timeout was done. With the go ahead from the glycerine plant operator, a Pfannenstiel incision was made. This incision was carried across the subcutaneous layer to the fascia which was also divided transversely. The recti abdominis muscle flaps were stripped from the fascia using a combination of blunt and sharp dissections. The muscles were in the midline to gain access to the anterior parietal peritoneum which was divided after excluding any underlying viscera. The access to the peritoneal cavity was then widened by manual stretching. The bladder blade was applied. The utero vesicle peritoneal flap was divided transversely allowing the bladder to be displaced caudally. The uterine incision was placed in the lower segment transversely. The uterine incision was carried to the decidual layer. The uterine incision was extended on both sides using the bandage scissors. The amniotic sac was ruptured with clear fluid. The head was lifted out of the false maternal pelvis and delivered through the incision using fundal pressure. The airways were bulb suctioned beginning with the mouth. Continuing fundal pressure combined with traction on the mandibular processes of the jaw delivered the rest of the baby. The umbilical cord was double clamped and divided. The baby was carefully transferred to the pediatric team. The placenta was manually removed from the uterine cavity. The uterine cavity was explored and was empty of any placental remnants. The uterine incision was repaired in 2 layers with #1 Vicryl. The surgical line on the uterus was hemostatic. Blood and clots were cleared from the peritoneal cavity. The anterior parietal peritoneum was repaired with #1 Vicryl. The fascia was repaired with #1 Vicryl. The subcutaneous layer was made hemostatic using the Bovie before the skin was closed subcuticularly with 4-0 Vicryl. There were no complications. The estimated blood loss was 800 mL. All sponges and instrument counts were correct. Patient was safely transferred to the recovery room.
[2019-07-26] MEDS ORDERED: HYDROmorphone 1 MG/1 ML INJ IV PRN (03:32)
--- NOTE | 2019-07-26 03:35 | Post Anesthesia Evaluation ---
- Post Anesthesia Evaluation Patient Participated: Yes Airway Patent: Yes Stable Respiratory Function: Yes Nausea/Vomiting: No Temp > 96.8F: Yes Pain Manageable: Yes Adequeate Hydration: Yes Anesthesia Complications: No Block Receding Appropriately: Yes Patient on Ventilator: Yes
[2019-07-26] MEDS: KETOROLAC 30 MG/1 ML INJ IV PRN ×3 (03:44→15:53)
[2019-07-26] MEDS ORDERED: ceFAZolin/NS 1 GM/50 ML 1 GM/50 ML BAG IV SCH ×2 (04:00→10:00)
[2019-07-26] MEDS: HYDROmorphone 1 MG/1 ML INJ IV PRN ×3 (04:25→05:51)
[2019-07-26 06:46] LABS: Amphetamine Screen,Urine PRESUMPTIVE NEGATIVE; Benzodiazepines Screen,Urine PRESUMPTIVE NEGATIVE; Cannabinoid Screen,Urine PRESUMPTIVE NEGATIVE; Cocaine Screen,Urine PRESUMPTIVE NEGATIVE; Methadone Screen,Urine PRESUMPTIVE NEGATIVE; Opiate Screen,Urine PRESUMPTIVE NEGATIVE
[2019-07-26] MEDS: MORPHINE 4 MG/1 ML INJ IV PRN ×3 (06:57→20:55)
[2019-07-26] MEDS: FERROUS SULFATE 325 MG TAB PO SCH (09:22)
[2019-07-26] MEDS: PRENATAL VIT27-FE FUMARATE-FOLIC ACID VIT TAB PO SCH (09:22)
[2019-07-26] MEDS: HYDROcodone/ACETAMINOPHEN 5-325 MG TAB PO PRN ×3 (09:25→23:23)
[2019-07-26 15:57] LABS: Hemoglobin 9.9 gm/dl (10.1-14.3)
[2019-07-27] MEDS: IBUPROFEN 800 MG TAB PO PRN ×3 (00:56→15:20)
[2019-07-27] MEDS: HYDROcodone/ACETAMINOPHEN 5-325 MG TAB PO PRN ×4 (05:29→23:40)
[2019-07-27] MEDS: FERROUS SULFATE 325 MG TAB PO SCH (09:21)
[2019-07-27] MEDS: PRENATAL VIT27-FE FUMARATE-FOLIC ACID VIT TAB PO SCH (09:21)
--- NOTE | 2019-07-27 13:15 | Progress Note ---
Assessment and Plan A: /postop day 1 S/P LTCS. Anemia secondary to blood loss. P: Supplement with iron. Patient to ambulate in halls today. Subjective - Subjective Date of service: 07/27/19 Principal diagnosis: /postop day 1 S/P LTCS Interval history: /postop day 1 S/P low transverse section. Doing well. Voiding without difficulty. Passing gas. Tolerating a regular diet. Ambulating well. Patient denies headache, chest pain, cough, shortness of breath, abdominal pain, leg pain, dizziness, or heavy bleeding. Patient reports: appetite normal, voiding normally, pain well controlled, flatus, ambulating normally, no dizzy ambulation, no bowel movement, no nauseated [place]: doing well Objective - Vital Signs Latest vital signs: Vital Signs Temp Pulse Resp BP BP Pulse Ox 07/27/19 07:55 98.4 F 85 18 123/76 97 07/27/19 00:46 98.3 F 102 H 18 122/72 96 07/26/19 21:00 98.7 F 89 18 121/77 98 07/26/19 17:18 97.5 F L 102 H 18 124/73 97 Intake and Output 07/26/19 07/27/19 07/27/19 23:59 07:59 15:59 Intake Total 120 240 355 Output Total 800 Balance -680 240 355 Intake: Oral 120 240 355 Output: Urine 800 Void 800 Other: Total, Intake Amount 120 240 355 Total, Output Amount 400 # Voids Void 1 1 2 - Exam Cardiovascular: Present: Regular rate, Normal S1, Normal S2, No murmurs Lungs: Present: Clear to auscultation Abdomen: Present: normal appearance, soft, normal bowel sounds. Absent: distention, tenderness, guarding, rigidity Uterus: Present: normal, firm, fundal height below umbilicus. Absent: bogginess, tenderness Extremities: Present: normal. Absent: tenderness, edema Incision: Present: normal, dry, intact, dressed - Labs Labs: Abnormal lab results 07/26/19 Range/Units 15:27 Hgb 9.9 L (10.1-14.3) gm/dl Hct 29.0 L D (30.3-42.9) %
[2019-07-28] MEDS: IBUPROFEN 800 MG TAB PO PRN ×3 (00:20→16:56)
[2019-07-28] MEDS: FERROUS SULFATE 325 MG TAB PO SCH (09:43)
[2019-07-28] MEDS: PRENATAL VIT27-FE FUMARATE-FOLIC ACID VIT TAB PO SCH (09:43)
--- NOTE | 2019-07-28 15:18 | Progress Note ---
Assessment and Plan A: /postop day 2 S/P LTCS. Anemia secondary to blood loss. P: Continue iron supplementation. Continue ambulation. Subjective - Subjective Date of service: 07/28/19 Principal diagnosis: /postop day 2 S/P LTCS Interval history: /postop day 2 S/P low transverse section. Doing well. Voiding without difficulty. Passing gas. Tolerating a regular diet. Ambulating well. Patient denies headache, chest pain, cough, shortness of breath, abdominal pain, leg pain, dizziness, or heavy bleeding. Patient reports: appetite normal, voiding normally, pain well controlled, flatus, ambulating normally, no dizzy ambulation, no nauseated [place]: doing well Objective - Vital Signs Latest vital signs: Vital Signs Temp Pulse Resp BP BP Pulse Ox 07/28/19 07:50 97.9 F 75 18 123/84 98 07/28/19 05:15 98.0 F 84 18 113/67 98 07/28/19 01:21 EST 98.3 F 80 18 130/83 96 Intake and Output 07/28/19 07/28/19 07/28/19 00:59 07:59 15:59 Intake Total Balance Intake: Oral Intake, Free Water Other: Total, Intake Amount # Voids Void - Exam Cardiovascular: Present: Regular rate, Normal S1, Normal S2 Lungs: Present: Clear to auscultation Abdomen: Present: normal appearance, soft, normal bowel sounds. Absent: distention, tenderness, guarding, rigidity Uterus: Present: normal, firm, fundal height below umbilicus. Absent: bogginess, tenderness Extremities: Present: normal. Absent: tenderness, edema Incision: Present: normal, dry, intact
[2019-07-29] MEDS: HYDROcodone/ACETAMINOPHEN 5-325 MG TAB PO PRN (00:13)
[2019-07-29] MEDS: IBUPROFEN 800 MG TAB PO PRN (05:14)
[2019-07-29 08:25] LABS: HIV-1 Antibody Differentiation NON-REACTIVE
[2019-07-29 08:28] LABS: HIV-2 Antibody Differentiation NON-REACTIVE
--- NOTE | 2019-07-29 09:54 | Progress Note ---
Assessment and Plan - Patient Problems (1) S/P primary low transverse Current Visit: Yes Status: Acute Plan to address problem: POD 3 - stable Discharge to home today Follow up at [facility] as needed or in 1 week for incision check (2) Anemia due to blood loss, acute Current Visit: Yes Status: Acute Plan to address problem: Asymptomatic Continue iron therapy Subjective - Subjective Date of service: 07/29/19 Principal diagnosis: POD #3; s/p Primary LTCS Interval history: see H&P, OB Progress Notes, Event Notes, Operative Report and PP/COMPUTER NUMERIC CONTROL SETTER Progress Notes Patient reports: appetite normal, voiding normally, pain well controlled, flatus, bowel movement, ambulating normally, no dizzy ambulation : doing well, other (breast and bottle feeding) Objective - Vital Signs Latest vital signs: Vital Signs Temp Pulse Resp BP BP Pulse Ox 07/29/19 05:00 98.4 F 79 18 133/72 99 07/28/19 23:58 98.2 F 85 18 134/87 98 07/28/19 16:35 98.2 F 100 H 18 132/79 97 Intake and Output 07/28/19 07/29/19 07/29/19 23:59 07:59 15:59 Intake Total 1320 480 Balance 1320 480 Intake: Oral 600 Intake, Free Water 720 480 Other: Total, Intake Amount 600 # Voids Void 3 2 - Exam Cardiovascular: Present: Regular rate Lungs: Present: Clear to auscultation Abdomen: Present: normal appearance, soft Vulva: both: normal Uterus: Present: normal, firm, fundal height below umbilicus Extremities: Present: normal Incision: Present: normal, dry, intact, other (steri strips in place) Comments: scant lochia
--- NOTE | 2019-07-29 09:57 | Discharge Summary ---
Providers - Providers Date of Admission: 07/25/19 03:05 Date of discharge: 07/29/19 Attending physician: WADE CASTILLO MD Primary care physician: DB2 DBA Hospitalization Reason for admission: active labor, IUP at term Delivery: Procedure: primary low transverse Episiotomy: none Laceration: none Incision: normal, dry, intact, other (steri strips in place) Other procedures: none complications: none Discharge diagnosis: IUP at term delivered baby: female Hospital course: Uncomplicated Condition at discharge: Stable Disposition: [id number] TO HOME OR SELFCARE - Discharge Diagnoses (1) S/P primary low transverse Status: Acute (2) Anemia due to blood loss, acute Status: Acute Comment: Asymptomatic Continue taking iron pills Eat iron-rich foods Plan - Discharge Medications Prescriptions: Ferrous Sulfate [Feosol 325 MG tab] 325 mg PO QDAY #30 tablet Ibuprofen [Motrin 800 MG tab] 800 mg PO Q6H PRN #30 tablet PRN Reason: Pain, Mild (1-3) HYDROcodone/APAP 5-325 [[place] 5/325] 1 - 2 each PO Q4HR PRN #30 tablet PRN Reason: Pain - Provider Discharge Summary Activity: routine, no sex for 6 weeks, no heavy lifting 4 weeks, no strenuous exercise Diet: routine Instructions: routine Additional instructions: [] Smoking cessation referral if applicable(refer to patient education folder for contact #) [] Refer to [facility]'s [facility] Booklet Call your doctor immediately for: * Fever > 100.5 * Heavy vaginal bleeding ( >1 pad per hour) * Severe persistent headache * Shortness of breath * Reddened, hot, painful area to leg or breast * Drainage or odor from incision. * Keep incision clean and dry at all times and follow doctor's instructions regarding bathing/showering - Follow up plan Follow up: PRIMARY CARE, [Primary Care Provider] - 7 Days (Follow up at [facility] [facility] [employer] as needed or in 1 week for incision check) Forms: [facility] Discharge Summary
[2019-07-29] MEDS: FERROUS SULFATE 325 MG TAB PO SCH (11:10)
[2019-07-29] MEDS: PRENATAL VIT27-FE FUMARATE-FOLIC ACID VIT TAB PO SCH (11:10)
[2019-07-29 16:59] VITALS: BP 126/79
== END 2019-07-29 16:50 | disposition home or self-care (01) | DRG 787 ==
LOC: TRG 03:04 → LD 03:05 → TRG 03:07 → LD 07:03 → OB 07-26 05:48
PROVIDERS: ADMIT Obstetrics & Gynecology; ATTEND Obstetrics & Gynecology
PROC: 10H07YZ Insertion of Other Device into Products of Conception, Via Natural or Artificial Opening (ICD-10-PCS; 2019-07-25)
PROC: 10907ZC Drainage of Amniotic Fluid, Therapeutic from Products of Conception, Via Natural or Artificial Opening (ICD-10-PCS; 2019-07-25)
PROC: 10D00Z1 Extraction of Products of Conception, Low, Open Approach (ICD-10-PCS; principal; 2019-07-26)
DX: O99.03 Anemia complicating the puerperium (principal); D62 Acute posthemorrhagic anemia; Z3A.40 40 weeks gestation of pregnancy; Z37.0 Single live birth; O62.0 Primary inadequate contractions
CPT/HCPCS: 36415; 59025; 80307; 85014; 85018; 85027; 86689; 86850; 86900; 86901; 96374; G0378; A6250; J0290; J0595; J0690; J1170; J1885; J2270; J2405; J2590; J2765; J3490; J7120